=== PATIENT | female | born 1960 | race Caucasian/White ===

== ENCOUNTER 2017-04-30 15:57 | Emergency (ER) | payer OTHER ==
--- NOTE | 2017-04-30 16:22 | PDOC ---
Rapid Medical Evaluation Chief Complaint: Headache Time Seen by Provider: 04/30/17 16:19 Medical Evaluation: Allergies Allergy/AdvReac Type Severity Reaction Status Date / Time No Known Allergies Allergy Verified 04/30/17 16:19 04/30/17 16:20 I have performed a brief in-person evaluation of this patient. The patient presents with a chief complaint of: frontal headache x months, no dizziness, visual changes, took tylenol this am , no relief, tingling to rt arm , no weakness Pertinent physical exam findings: VSS, no neurofocal deficit, PERRL I have ordered the following: none The patient will proceed to the ED for further evaluation.
[2017-04-30 16:24] VITALS: BP 145/96; PULSE 84; TEMP 98.2; BMI 31.8
--- NOTE | 2017-04-30 17:59 | PDOC ---
History of Present Illness - General Chief Complaint: Headache Stated Complaint: HEADACHES, LT ARM/SIDE PAIN Time Seen by Provider: 04/30/17 16:19 History Source: Patient Exam Limitations: No Limitations - History of Present Illness Initial Comments: 04/30/17 18:01 My Chief Complaint: rt. lateral neck pain radiates down rt. arm to hand with tingling sensation for 4 days, headache History of present illness: Patient is a 57 year old female with a history of left breast knee, hyperlipidemia here today complaining of right lateral neck pain that radiates down her right arm to hand 4 days with tingling sensation of fingers. Patient reports that she is right handed. 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 Reports that she has been taking ibuprofen without relief of symptoms and also acetaminophen without relief of pain. Patient went to work today. Patient also reports having parietal headaches intermittently for few months, none now. Patient denies any fall or injuries. Patient denies any change in vision, nausea , or dizziness. 04/30/17 18:03 04/30/17 19:47 Timing/Duration: reports: constant Severity: Yes: moderate Associated Symptoms: reports: paresthesia (rt. hand ), other (rt. lateral neck pain radiates down right arm to hand 4 days, parietal head on and off had earlier today ) Past History - Past Medical History Allergies/Adverse Reactions: Allergies Allergy/AdvReac Type Severity Reaction Status Date / Time No Known Allergies Allergy Verified 04/30/17 16:19 Home Medications: Ambulatory Orders Atorvastatin Ca [Lipitor] 20 mg PO HS 06/10/16 Exemestane [Aromasin -] 25 mg PO DAILY 06/10/16 Albuterol Sulfate Inhaler - [Ventolin HFA Inhaler -] 1 - 2 inh PO QID PRN #1 inhaler 06/11/16 Methylprednisolone [Medrol Dose Neel] 4 mg PO ASDIR #21 tablet 06/11/16 Cyclobenzaprine HCl [Flexeril 10 mg] 10 mg PO Q8H PRN #20 tablet 04/30/17 Naproxen [Naprosyn -] 500 mg PO Q12H PRN #14 tablet 04/30/17 Oxycodone HCl/Acetaminophen [Percocet 5-325 mg Tablet] 1 tab PO Q6H PRN #20 tablet MDD 4 04/30/17 Cancer: Yes (Left Breast CA) CVA: No COPD: No Hypercholesterolemia: Yes - Immunization History Immunization Up to Date: Yes - Suicide/Smoking/Psychosocial Hx Smoking History: Never smoked Have you smoked in the past 12 months: No Information on smoking cessation initiated: No Hx Alcohol Use: No Drug/Substance Use Hx: No Substance Use Type: None Review of Systems - Review of Systems Able to Perform ROS?: Yes Constitutional: No: Symptoms Reported HEENTM: No: Symptoms Reported Respiratory: No: Symptoms reported Cardiac (ROS): No: Symptoms Reported ABD/GI: No: Symptoms Reported : No: Symptoms Reported Musculoskeletal: Yes: Neck Pain (rt lateral neck radiates down rt. arm to hand ) Neurological: Yes: Headache (parietal ), Tingling (rt. hand ) *Physical Exam - Vital Signs Last Vital Signs Temp Pulse Resp BP Pulse Ox 98.2 F 84 15 145/96 97 04/30/17 16:20 04/30/17 16:20 04/30/17 16:20 04/30/17 16:20 04/30/17 16:20 - Physical Exam General Appearance: Yes: Appropriately Dressed HEENT: positive: EOMI, YOGESH Neck: positive: Tender lateral (rt. lateral ). negative: Decreased range of motion, Lymphadenopathy (R), Lymphadenopathy (L), Rigidity, Tender midline Respiratory/Chest: positive: Lungs Clear, Normal Breath Sounds. negative: Chest Tender, Respiratory Distress Cardiovascular: positive: Regular Rhythm, Regular Rate, S1, S2 Extremity: positive: Normal Capillary Refill, Normal Inspection, Normal Range of Motion (rt. shoulder, elbow, wrist and all digits rt.hand ) Integumentary: positive: Normal Color Neurologic: positive: hogshead opener II-XII NML intact, Fully Oriented, Alert, Normal Response, Motor Strength 5/5 (upper extremities b/l ), Respond to painful stimul (rt. arm ), Responsive, Other (negative tinel, phalen). negative: Numbness, Sensory Deficit (rt arm/hand ) Medical Decision Making - Medical Decision Making 04/30/17 18:06 Patient is a 57 year old female with a history of left breast knee, hyperlipidemia here today complaining of right lateral neck pain that radiates down her right arm to hand 4 days with tingling sensation of fingers. Patient reports that she is right handed. 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 Reports that she has been taking ibuprofen without relief of symptoms and also acetaminophen without relief of pain. Patient went to work today. Patient also reports having parietal headaches intermittently for few months , none now. Patient denies any fall or injuries. Patient denies any change in vision, nausea , or dizziness. rt. lateral neck pain with radiculopathy rt. arm/hand with parenthesia of rt. hand 04/30/17 18:07 PLAN: toraol 30 mg IM now xray cervical spine straightening of the cervical spine that appears otherwise normal per Dr. Quiroz percocet 5mg/325 mg one tab every 6 hrs prn pain flexeril 10 mg po no than q 8 hrs prn X 20 tabs follow up with ortho 04/30/17 18:11 04/30/17 19:30 follow up with orthopedist 04/30/17 19:42 04/30/17 19:48 *DC/Admit/Observation/Transfer Diagnosis at time of Disposition: Cervical radiculopathy - Discharge Dispostion Disposition: HOME Condition at time of disposition: Stable - Prescriptions Prescriptions: Cyclobenzaprine HCl [Flexeril 10 mg] 10 mg PO Q8H PRN #20 tablet PRN Reason: Muscle Spasms Naproxen [Naprosyn -] 500 mg PO Q12H PRN #14 tablet PRN Reason: Pain Oxycodone HCl/Acetaminophen [Percocet 5-325 mg Tablet] 1 tab PO Q6H PRN #20 tablet MDD 4 PRN Reason: Severe Pain - Referrals Referrals: Sena Payan MD [Primary Care Provider] - Arcenio Díaz MD [Staff Physician] - - Patient Instructions Additional Instructions: Follow-up with orthopedist as soon as possible for further evaluation Avoid any heavy lifting or exercise Return to emergency room if symptoms worsen She voiced understanding of Instructions and all questions were answered Thank you for choosing [facility] emergency room for your medical needs - Post Discharge Activity
[2017-04-30] MEDS ORDERED: KETOROLAC TROMETHAMINE 60 MG/2 ML VIAL IM ONE (18:07)
[2017-04-30] MEDS ORDERED: KETOROLAC TROMETHAMINE 30 MG/1 ML VIAL ONE (18:13)
[2017-04-30] MEDS ORDERED: CYCLOBENZAPRINE HCL 10 MG TABLET (FP) PO ONE ×2 (19:35→19:45)
[2017-04-30] MEDS ORDERED: CYCLOBENZAPRINE HCL 10 MG TABLET (FP) ONE (19:37)
== END 2017-04-30 20:28 | disposition home or self-care (01) ==
LOC: JERFT 15:57
PROC: 3E0233Z Introduction of Anti-inflammatory into Muscle, Percutaneous Approach (ICD-10-PCS; principal; 2017-04-30)
DX: M54.12 Radiculopathy, cervical region (principal); E78.00 Pure hypercholesterolemia, unspecified; Z85.3 Personal history of malignant neoplasm of breast
CPT/HCPCS: 72050-TC; 99281-25

== ENCOUNTER 2018-05-09 12:04 | Emergency (ER) | payer OTHER ==
[2018-05-09] MEDS ORDERED: ALBUTEROL SO4 2.5/IPRATROPIUM 0.5 INH SOL 3 ML VIAL.NEB. NEB ONE ×2 (12:09→12:13)
[2018-05-09 12:13] VITALS: BP 161/102; TEMP 98.2; BMI 31.5
--- NOTE | 2018-05-09 12:13 | PDOC ---
History of Present Illness - General Chief Complaint: Shortness of Breath Stated Complaint: DIFFICLTY BREATHING Time Seen by Provider: 05/09/18 12:12 History Source: Patient Exam Limitations: No Limitations - History of Present Illness Initial Comments: Pt is a 58 yo F, who is presenting with complaints of nasal congestion and dry cough x1 week. Pt has PMH of HLD and "seasonal allergies" that is sometimes associated with wheezing, but has never been diagnosed with asthma nor taken an albuterol inhaler in the past. Pt states the cough has progressed over the past 2 days (still non-productive), with mild SOB and wheezing. She has also noticed mild sinus pressure around her eyes, but denies any rhinorrhea. There are no exacerbating or alleviating factors for her symptoms. She has taken OTC claritin with no relief. Pt denies any fevers/chills, headache, vision changes , rhinorrhea, sore throat, chest pain, palpitations, nausea/vomiting, abdominal pain, urinary symptoms, diarrhea/constipation, or leg swelling. Pt denies any cigarette, alcohol, or drug use. Pt denies any recent travel or sick contacts. 05/09/18 13:04 Past History - Travel Traveled outside of the country in the last 30 days: No Close contact w/someone who was outside of country & ill: No - Past Medical History Allergies/Adverse Reactions: Allergies Allergy/AdvReac Type Severity Reaction Status Date / Time No Known Allergies Allergy Verified 04/30/17 16:19 Home Medications: Ambulatory Orders Atorvastatin Ca [Lipitor] 20 mg PO HS 06/10/16 Exemestane [Aromasin -] 25 mg PO DAILY 06/10/16 Albuterol Sulfate Inhaler - [Ventolin HFA Inhaler -] 1 - 2 inh PO QID PRN #1 inhaler 06/11/16 Methylprednisolone [Medrol Dose Neel] 4 mg PO ASDIR #21 tablet 06/11/16 Cyclobenzaprine HCl [Flexeril 10 mg] 10 mg PO Q8H PRN #20 tablet 04/30/17 Naproxen [Naprosyn -] 500 mg PO Q12H PRN #14 tablet 04/30/17 Oxycodone HCl/Acetaminophen [Percocet 5-325 mg Tablet] 1 tab PO Q6H PRN #20 tablet MDD 4 04/30/17 Albuterol Sulfate Inhaler - [Ventolin HFA Inhaler -] 1 - 2 inh PO Q4H PRN #1 inhaler 05/09/18 predniSONE [Deltasone -] 40 mg PO DAILY 4 Days #8 tablet 05/09/18 Cancer: Yes (Left Breast CA) CVA: No COPD: No Hypercholesterolemia: Yes - Immunization History Immunization Up to Date: Yes - Suicide/Smoking/Psychosocial Hx Smoking History: Never smoked Have you smoked in the past 12 months: No Hx Alcohol Use: No Drug/Substance Use Hx: No Substance Use Type: None Review of Systems - Review of Systems Able to Perform ROS?: Yes Is the patient limited Armenian proficient: No Constitutional: Yes: Loss of Appetite (poor apetite, tolerating PO intake, no decreased fluid intake), Weight Stable. No: Chills, Diaphoresis, Fever, Night Sweats, Weakness HEENTM: Yes: Nose Congestion, Other (mild sinus pressure around eyes). No: Blurred Vision, Recent change in vision, Double Vision, Ear Discharge, Nose Pain , Tinnitus, Nose Bleeding, Hearing Loss, Throat Pain, Throat Swelling, Difficulty Swallowing Respiratory: Yes: Cough, Shortness of Breath, SOB with Exertion, SOB at Rest, Wheezing. No: Orthopnea, Stridor, Productive cough, Hemoptysis Cardiac (ROS): Yes: Chest Tightness. No: Chest Pain, Edema, Irregular Heart Rate, Lightheadedness, Palpitations, Syncope ABD/GI: Yes: Poor Appetite. No: Constipated, Diarrhea, Nausea, Poor Fluid Intake, Vomiting, Abdominal cramping : No: Burning, Dysuria, Frequency, Hematuria, Pain, Urgency Musculoskeletal: No: Back Pain, Joint Pain Integumentary: No: Rash Neurological: No: Headache, Seizure, Weakness, Unsteady Gait, Ataxia, Dizziness Psychiatric: No: Sleep Pattern Change, Change in Appetite Endocrine: No: Increased Urine, Change in Weight Hematologic/Lymphatic: No: Anemia, Blood Clots, Easy Bleeding, Easy Bruising All Other Systems: Reviewed and Negative *Physical Exam - Physical Exam General Appearance: Yes: Nourished, Appropriately Dressed, Obese. No: Apparent Distress (pt sitting comfortably, no obvious increased WOB or tachypnea, can speak in full sentences.) HEENT: positive: EOMI, YOGESH, Normal ENT Inspection, Normal Voice, Symmetrical, TMs Normal, Pharynx Normal, Hearing Grossly Normal. negative: Scleral Icterus ( R), Scleral Icterus (L), Pharyngeal Erythema, Tonsillar Exudate, Tonsillar Erythema, Nasal Congestion, Rhinorrhea, Sinus Tenderness (no sinus tenderness with palpation or percussion), TM Bulging, TM Dull, TM Erythema, Excessive drooling Neck: positive: Trachea midline, Normal Thyroid, Supple. negative: Tender, Rigid, Decreased range of motion, Lymphadenopathy (R), Lymphadenopathy (L), Rigidity Respiratory/Chest: positive: Wheezing (b/l severe wheezing anterior and posterior). negative: Chest Tender, Lungs Clear, Normal Breath Sounds, Respiratory Distress, Accessory Muscle Use, Labored Respiration, Rapid RR, Crackles, Rhonchi, Stridor Cardiovascular: positive: Regular Rhythm, S1, S2, Tachycardia. negative: Regular Rate, Edema, JVD, Murmur Vascular Pulses: Carotid (R): 4+, Carotid (L): 4+ Gastrointestinal/Abdominal: positive: Normal Bowel Sounds, Flat, Soft. negative : Tender, Organomegaly, Pulsatile Mass, Distended, Guarding, Rebound Rectal Exam: positive: deferred Lymphatic: negative: Adenopathy, Tenderness Musculoskeletal: positive: Normal Inspection. negative: CVA Tenderness Extremity: positive: Normal Capillary Refill, Normal Inspection, Normal Range of Motion, Pelvis Stable. negative: Tender, Pedal Edema Integumentary: positive: Normal Color, Dry, Warm. negative: Jaundice, Clammy, Diaphoresis, Hives, Rash Neurologic: positive: tour actor II-XII NML intact, Fully Oriented, Alert, Normal Mood/ Affect, Normal Response, Motor Strength 5/5 ED Treatment Course - LABORATORY CBC & Chemistry Diagram: 05/09/18 12:56 05/09/18 12:55 Medical Decision Making - Medical Decision Making Pt was seen at bedside, also will be seen by attending Dr. Borden. Pt presenting with complaints of nasal congestion and dry cough x1 week. Pt states the cough has progressed over the past 2 days (still non-productive), with mild SOB and wheezing. She has also noticed mild sinus pressure around her eyes, but denies any rhinorrhea. Pt has PMH of HLD and "seasonal allergies" that is sometimes associated with wheezing, but has never been diagnosed with asthma nor taken an albuterol inhaler in the past. There are no exacerbating or alleviating factors for her symptoms. She has taken OTC claritin with no relief. Pt denies any fevers/chills, headache, vision changes, rhinorrhea, sore throat, chest pain, palpitations, SOB, nausea/vomiting, abdominal pain, urinary symptoms, diarrhea/ constipation, or leg swelling. PE showed diffuse b/l expiratory wheezing, anterior and posterior. Pt afebrile, but tachycardic (HR 105), O2 saturation 94% on RA. Pt able to speak in full sentences, no tachypnea or obvious increased WOB. No oropharyngeal edema or erythema. Considering acute URI vs influenza vs uncontrolled/undiagnosed asthma exacerbation. Ordered work-up including CBC, CMP, chest x-ray, influenza swab. Provided duoneb, 60 mg IV solumedrol (pt never taken before), 2 g Mg, 1 L NS for improvement of wheezing and air movement. Will continue to reassess pt and monitor for symptomatic improvement. 05/09/18 12:55 CBC: WBC 11.2 CMP and influenza swab pending. Chest x-ray showed no acute pathology. HR low 100s, O2 saturation improving 95-96%. Will observe pt with ambulation before disposition. 05/09/18 13:17 Influenza negative, pending CMP. 05/09/18 13:32 CMP generally WNL. 05/09/18 13:41 Pt ambulated to the restroom and did not feel SOB. O2 saturation was 95-96% after walking. Still some remaining posterior wheezes, but air movement significantly improved after treatment. Sent albuterol inhaler and steroids to pt pharamacy (40 mg prednisone, Qday, x4 days). Considering normal lab results and imaging pt can be discharged to home with follow-up, as this is likely an URI. Pt advised to follow-up with PCP in 1-2 days. Strict return precautions provided with pt understanding. 05/09/18 13:55 *DC/Admit/Observation/Transfer Diagnosis at time of Disposition: Wheezing Upper respiratory infection Qualifiers: URI type: unspecified URI Qualified Code(s): J06.9 - Acute upper respiratory infection, unspecified - Discharge Dispostion Disposition: HOME Condition at time of disposition: Improved Decision to Admit order: No - Prescriptions Prescriptions: Albuterol Sulfate Inhaler - [Ventolin HFA Inhaler -] 1 - 2 inh PO Q4H PRN #1 inhaler PRN Reason: Short Of Breath/Wheezing predniSONE [Deltasone -] 40 mg PO DAILY 4 Days #8 tablet - Referrals Referrals: Sena Payan MD [Primary Care Provider] - - Patient Instructions Printed Discharge Instructions: DI for Viral Upper Respiratory Infection -- Adult Additional Instructions: You were seen in the ER today for cough and wheezing. The results of your labs and imaging today showed a small infection, but your chest x-ray was clear. Please follow-up with your primary care doctor within 1-2 days to discuss your visit and make sure your symptoms have improved. Please return to the ER if you have any worsening shortness of breath, cough productive of yellow/green sputum or blood, development of fevers or chills, loss of consciousness, inability to tolerate food or fluids, or any other concerns. You may continue to take over the counter tylenol or motrin for fevers if they occur. Please take your albuterol inhaler every 4 hours (1-2 puffs) as needed for cough and wheezing. Please also take 40 mg (2 tablets) of prednisone, once a day, for 4 days. - Post Discharge Activity
[2018-05-09] MEDS ORDERED: SODIUM CHLORIDE 1,000 ML IV STA (12:31)
[2018-05-09] MEDS ORDERED: methylPREDNISolone NA SUCC 125 MG/2 ML VIAL IVPUSH ONE (12:32)
[2018-05-09] MEDS ORDERED: methylPREDNISolone NA SUCC 40 MG/1 ML VIAL IVPUSH ONE (12:33)
[2018-05-09] MEDS ORDERED: MAGNESIUM SULF 50% (8.12 MEQ/2 ML-1 GM VIAL) IVPB ONE (12:37)
[2018-05-09] MEDS ORDERED: MAGNESIUM 1GM/D5W - 2 GM/200 ML IVPB IVPB ONE (12:38)
[2018-05-09] MEDS ORDERED: methylPREDNISolone NA SUCC 40 MG/1 ML VIAL ONE (12:38)
[2018-05-09 13:06] LABS: BASO % 0.7 % (0-2.0); HEMOGLOBIN 14.4 GM/dL (10.7-15.3); LYMPH % 16.4 % (8-40); MCH 29.8 pg (25.7-33.7); MCHC 34.4 g/dl (32.0-36.0); MEAN CELL VOLUME 86.8 fl (80-96); MEAN PLT VOLUME 9.4 fl (7.5-11.1); MONO % 5.4 % (3.8-10.2); NEUT % 74.5 % (42.8-82.8); PLATELET COUNT 218 K/MM3 (134-434); RBC 4.84 M/mm3 (3.60-5.2); RDW 13.2 % (11.6-15.6); WHITE BLOOD COUNT 11.2 K/mm3 (4.0-10.0)
--- NOTE | 2018-05-09 13:14 | PDOC ---
Attending Attestation - Resident Resident Name: Yola Tejeda - ED Attending Attestation I have performed the following: I have examined & evaluated the patient, The case was reviewed & discussed with the resident, I agree w/resident's findings & plan, Exceptions are as noted - HPI HPI: 05/09/18 13:11 58y F hx of HL, L breast ca (remote past, sp mastectomy), seasonal allergies, no dx of of asthma/copd, presents with approx 5 days of SOB/coughing, mild nasal congestion and sinus pressure around her eyes. She used otx meds with improvement of her sinus congestion, but notes her cough has been persistent, denies any fever/chills, sputum production, hemoptysis, leg swelling, orthopnea , calf pain. Pt notes she typically feels similar constellation of symptoms every winter but no pulm dx. Deines smoking. No hx of PE/DVT GENERAL: The patient is awake, alert, and fully oriented, Nontoxic - in no acute distress. HEAD: Normocephalic, atraumatic. EYES: extraocular movements intact, sclera anicteric, conjunctiva clear. ENT: Normal voice, Moist mucous membranes. NECK: Normal range of motion, supple LUNGS: No acute respiratory distress, speaking complete sentences HEART: Regular rate and rhythm, normal S1 and S2 without murmur, rub or gallop. ABDOMEN: Soft, nontender, normoactive bowel sounds. No guarding, no rebound. . No CVA tenderness EXTREMITIES: Normal range of motion, no edema. Negative Homans signs, no calf tenderness NEUROLOGICAL: No facial assymetry, Normal speech, PSYCH: Normal mood, normal affect. SKIN: Warm, Dry, normal turgor, Suspect mild viral sx exacerbating bronchspasm considered PE, but do not feel likely erika wiht diffuse wheezing We'll obtain chest x-ray, blood work will reassess Give nebs, steroids anticipate dc if pt feeling improved wiht pmd fu - Physicial Exam PE: 05/09/18 16:56 see above - Medical Decision Making 05/09/18 16:56 pt feeling improved at dc ambulatory around ED wit hnormal sats no tacphynea repeat sat 96% on RA will dc with pmd fu will give steroids/abluterol
[2018-05-09 13:38] LABS: ALBUMIN 4.2 g/dl (3.4-5.0); ALK PHOS 103 U/L (45-117); ANION GAP 7 MMOL/L (8-16); BILIRUBIN,TOTAL 0.4 mg/dL (0.2-1); BLOOD UREA NITROGEN 13 mg/dL (7-18); CALCIUM 9.1 mg/dL (8.5-10.1); CHLORIDE 104 mmol/L (98-107); CO2 27 mmol/L (21-32); CREATININE 0.8 mg/dL (0.55-1.3); GLUCOSE,RANDOM 113 mg/dL (74-106); POTASSIUM 4.7 mmol/L (3.5-5.1); SGOT/AST 24 U/L (15-37); SGPT/ALT 24 U/L (13-61); SODIUM 138 mmol/L (136-145); TOT PROT 8.5 g/dl (6.4-8.2)
[2018-05-09 13:55] VITALS: PULSE 93
== END 2018-05-09 13:58 | disposition home or self-care (01) ==
LOC: JER 12:04
PROC: 3E0F7GC Introduction of Other Therapeutic Substance into Respiratory Tract, Via Natural or Artificial Opening (ICD-10-PCS; principal; 2018-05-09)
PROC: 3E033GC Introduction of Other Therapeutic Substance into Peripheral Vein, Percutaneous Approach (ICD-10-PCS; 2018-05-09)
PROC: 3E0337Z Introduction of Electrolytic and Water Balance Substance into Peripheral Vein, Percutaneous Approach (ICD-10-PCS; 2018-05-09)
DX: J06.9 Acute upper respiratory infection, unspecified (principal); R06.2 Wheezing; Z85.3 Personal history of malignant neoplasm of breast; E78.00 Pure hypercholesterolemia, unspecified
CPT/HCPCS: 36415; 71046-TC-FY; 80053; 85025; 87804; 99283-25; J7030

== ENCOUNTER 2021-03-28 10:59 | Emergency (ER) | payer OTHER ==
[2021-03-28 11:05] VITALS: BP 136/76; PULSE 60; TEMP 97.2; BMI 32.8
[2021-03-28] MEDS ORDERED: ACETAMINOPHEN 325 MG TABLET (FP) PO ONE (11:56)
[2021-03-28] MEDS ORDERED: ACETAMINOPHEN 325 MG TABLET (FP) ONE (11:57)
== END 2021-03-28 13:14 | disposition home or self-care (01) ==
LOC: JER 10:59 → JERFT 10:59
DX: S93.401A Sprain of unspecified ligament of right ankle, initial encounter (principal); W19.XXXA Unspecified fall, initial encounter; Y92.9 Unspecified place or not applicable
CPT/HCPCS: 73562-TC-LT-FY; 73610-TC-RT-FY; 73630-TC-RT-FY; 99284-25